=== PATIENT | female | born 1985 | race African-American/Black ===

== ENCOUNTER 2021-01-30 20:27 | Emergency (ER) | payer OTHER ==
[~2021-01-30 20:27] MED LIST: BOTOX100 UNIT IJ; HYDROCODON-ACE1 EAC2 PO; NORCO 5-325 TA1 EACH PO; ONDANSETRON HCL4 MG PO; PHENERGAN25 M1 PO; PLAQUENIL200 MG PO; VITAMIN B125000 MCG PO; VITAMIN D31250 MC1 PO; ZOFRAN8 MG PO
== END 2021-01-31 00:28 | disposition home or self-care (01) ==
LOC: FER 20:27
DX: G43.909 Migraine, unspecified, not intractable, without status migrainosus (principal); Z79.891 Long term (current) use of opiate analgesic; Z79.899 Other long term (current) drug therapy
CPT/HCPCS: 96372; J1100; J1200; J1885; J2765; J3030; J7030

== ENCOUNTER 2021-03-25 13:17 | Emergency (ER) | payer OTHER ==
[2021-03-25 15:43] LABS: BILIRUBIN NEGATIVE (NEGATIVE); BLOOD NEGATIVE Ery/uL (NEGATIVE); CLARITY CLEAR (CLEAR); COLOR YELLOW (YELLOW); GLUCOSE (U) NORMAL (NORMAL); LEUKOCYTES NEGATIVE Leu/uL (NEGATIVE); NITRITE NEGATIVE (NEGATIVE); PROTEIN NEGATIVE (NEGATIVE); UROBILINOGEN 0.2 mg/dL (0.2-1.0); pH 7.5 (5.0-9.0)
[2021-03-25 15:58] LABS: BASOPHIL 0.4 % (0-2); EOSINOPHIL 0.1 % (0-5); HCT 41.5 % (37.0-47.0); HGB 12.7 g/dl (12.5-16.0); MCH 27.4 pg (25.0-31.0); MCHC 30.6 g/dL (32.0-36.0); MCV 89.4 fL (78.0-100.0); MONOCYTE 4.4 % (0-12); MPV 8.8 fL (6.0-9.5); NEUTROPHIL 86.8 % (41-80); NRBC 0; PLT 204 K/uL (150-400); RBC 4.64 M/uL (4.20-5.40); RDW 12.2 % (11.5-14.0); WBC 10.9 K/uL (4.0-10.5)
[2021-03-25 16:13] LABS: ALBUMIN 3.7 g/dL (3.4-5.0); BILIRUBIN - TOTAL 0.4 mg/dL (0.2-1.0); BUN/CREAT RATIO (CALC) 13.5 RATIO; CREATININE 0.74 mg/dL (0.51-0.95); GLOBULIN (CALCULATION) 3.4 g/dL; POTASSIUM 3.8 mmol/L (3.5-5.1); TOTAL PROTEIN 7.1 g/dL (6.4-8.2)
[2021-03-25] MEDS ORDERED: PHENERGAN12.5 M1 PO (16:29)
== END 2021-03-25 16:50 | disposition home or self-care (01) ==
LOC: FER 13:17
PROVIDERS: Physician Assistant
DX: R11.2 Nausea with vomiting, unspecified (principal); R19.7 Diarrhea, unspecified
CPT/HCPCS: 36415; 80053; 81001; 85025; J2405; J7030

== ENCOUNTER → 2021-12-07 | Day surgery (SDC) | payer OTHER ==
[~2021-12-07] VITALS: Ht 167.6 cm; Wt 70.3 kg
[~2021-12-07] MED LIST changes: +COLACE100 MG PO; +IBUPROFEN800 M1 PO; +MEDROL 4MG DOSEP4 MG PO; +NAPROXEN500 MG PO; +ONDANSETRON ODT4 MG PO; +PERCOCET 5-3251 EACH PO; +PHENERGAN12.5 M1 PO; +PYRIDIUM200 MG PO
[2021-12-07 07:29] LABS: HCT 40.4 % (37.0-47.0); HGB 12.9 g/dl (12.5-16.0); MCH 27.4 pg (25.0-31.0); MCHC 31.9 g/dL (32.0-36.0); MPV 9.2 fL (6.0-9.5); RBC 4.7 M/uL (4.20-5.40); RDW 12.4 % (11.5-14.0); WBC 7.1 K/uL (4.0-10.5)
[2021-12-07 07:34] LABS: HCG (URINE) SCREEN NEGATIVE (NEGATIVE)
== END | disposition home or self-care (01) ==
LOC: FAS 06:57
PROVIDERS: Obstetrics & Gynecology
DX: N80.3 Endometriosis of pelvic peritoneum (principal); N84.0 Polyp of corpus uteri; N83.202 Unspecified ovarian cyst, left side; N83.8 Other noninflammatory disorders of ovary, fallopian tube and broad ligament; K59.09 Other constipation; Z79.899 Other long term (current) drug therapy
CPT/HCPCS: 36415; 84703; 87088; J1100; J1170; J1885; J2250; J2405; J2550; J2704; J2710; J3010; J7120; J7298